=== PATIENT | female | born 1965 | race Caucasian/White ===

== ENCOUNTER 2018-01-19 11:48 | Emergency (ER) | payer BC ==
[~2018-01-19] VITALS: Ht 165.1 cm; Wt 80.0 kg
[2018-01-19 12:19] VITALS: BP 152/82; PULSE 77; RESP 17; TEMP 98.7; O2SAT 100
[2018-01-19] MEDS ORDERED: MORPHINE SULFATE 4 MG/ML INJ IV PUSH ONE ×2 (15:15→17:30)
[2018-01-19] MEDS ORDERED: SODIUM CHLOR 0.9% 1000 ML INJ 1,000 ML IV ONE (15:15)
[2018-01-19] MEDS ORDERED: PROMETHAZINE INJ 25 MG/ML VIAL IM ONE (15:15)
[2018-01-19 15:53] LABS: AUTOMATED NEUTROPHIL # 2.1 TH/MM3 (1.8-7.7); BASOPHIL % 1.2 % (0.0-2.0); EOSINOPHIL # 0.1 TH/MM3 (0-0.4); EOSINOPHIL % 1.6 % (0.0-4.0); HEMATOCRIT 34.5 % (35.0-46.0); HEMOGLOBIN 11.1 GM/DL (11.6-15.3); LYMPH % 28.1 % (9.0-44.0); LYMPHOCYTE # 0.9 TH/MM3 (1.0-4.8); MEAN CELL VOLUME 83.5 FL (80.0-100.0); MEAN CORPUSCULAR HEMOGLOBIN 26.9 PG (27.0-34.0); MEAN CORPUSCULAR HGB CONC 32.1 % (32.0-36.0); MEAN PLATELET VOLUME 8.1 FL (7.0-11.0); MONO % 4.1 % (0.0-8.0); MONOCYTE # 0.1 TH/MM3 (0-0.9); PLATELET COUNT 191 TH/MM3 (150-450); RED BLOOD COUNT 4.13 MIL/MM3 (4.00-5.30); RED CELL DISTRIBUTION WIDTH 13.7 % (11.6-17.2); WHITE BLOOD COUNT 3.2 TH/MM3 (4.0-11.0)
[2018-01-19 15:59] LABS: PROTHROMBIN TIME - PATIENT 10.2 SEC (9.8-11.6)
[2018-01-19 16:00] LABS: BILIRUBIN, URINE NEG (NEG); BLOOD, URINE SMALL (NEG); GLUCOSE,URINE NEG (NEG); KETONE, URINE NEG (NEG); NITRITE,URINE NEG (NEG); PH, URINE 6.5 (5.0-8.5); SQUAMOUS EPITHELIAL CELL URINE 1 /hpf (0-5); URINE COLOR LIGHT-YELLOW (YELLW/STRAW); URINE LEUKOCYTE ESTERASE NEG (NEG)
[2018-01-19 16:09] LABS: ALBUMIN 3.4 GM/DL (3.4-5.0); AST (GOT) 22 U/L (15-37); BICARBONATE 26.1 MEQ/L (21.0-32.0); BLOOD UREA NITROGEN 7 MG/DL (7-18); CALCIUM 8.9 MG/DL (8.5-10.1); CHLORIDE 110 MEQ/L (98-107); CREATININE 0.65 MG/DL (0.50-1.00); GLOMERULAR FILTRATION RATE 96 ML/MIN (>89); GLUCOSE,RANDOM 80 MG/DL (74-106); SODIUM (NA) 143 MEQ/L (136-145)
[2018-01-19 16:12] LABS: ALKALINE PHOSPHATASE 78 U/L (45-117); ALT (GPT) 25 U/L (10-53); TOTAL BILIRUBIN ADULT 0.2 MG/DL (0.2-1.0)
--- NOTE | 2018-01-19 16:43 | PD ---
HPI Chief Complaint: Abdominal Pain Time Seen by Provider: 14:56 Travel History International Travel<30 days: No Contact w/Intl Traveler<30days: No Traveled to known affect area: No History of Present Illness HPI 52-year-old female that presents to the ED for evaluation of abdominal pain. Patient states having left upper quadrant abdominal pain for the past week. Per patient she is now from this area. Per patient is from [facility]. Per patient she has a chronic history of Crohn's disease with multiple surgeries to her abdomen as well as a gastric stimulator. Per patient a gastric similar is off because it does not seem to be working for her and at this time did not want to take it out because of the patient's chronic comorbidities. She also has a history gastroparesis. Per patient she has been traveling with her significant other who is currently working here in [facility] and they noted that her pain has increased and worse today. Patient does have multiple allergies to different medications including Zofran, Percocet, Demerol, tramadol, ketorolac, iodine, and Reglan. She states that she follows with the [facility] in [place] for most of her care she has not been able to call them since being out of town. She is concerned that she may have an obstruction as the pain is only on the right side. She states that her bowel movements have been normal. She states feeling some nausea and some vomiting but nothing recently. She has been able to keep stuff down. She has been taking Motrin with minimal relief of the pain. PFSH Past Medical History ?: Unknown Social History Alcohol Use: Yes Tobacco Use: No Substance Use: No Allergies-Medications (Allergen,Severity, Reaction): Coded Allergies: acetaminophen (Verified Allergy, Severe, 01/19/18) iodine (Verified Allergy, Severe, Hives, 01/19/18) ketorolac (Verified Allergy, Severe, 01/19/18) meperidine (Verified Allergy, Severe, 01/19/18) metoclopramide (Verified Allergy, Severe, 01/19/18) ondansetron (Verified Allergy, Severe, 01/19/18) oxycodone (Verified Allergy, Severe, 01/19/18) Reported Meds & Prescriptions Reported Meds & Active Scripts Active Phenergan (Promethazine HCl) 25 Mg Tablet 25 Mg PO Q6H PRN Hydrocodone-Acetamin 5-325 mg (Hydrocodone/Acetaminophen) 5 Mg-325 Mg Tablet 1 Tab PO Q6HR PRN Review of Systems Except as stated in HPI: all other systems reviewed are Neg Physical Exam Narrative GENERAL: SKIN: Warm and dry. HEAD: Atraumatic. Normocephalic. EYES: Pupils equal and round. No scleral icterus. No injection or drainage. ENT: No nasal bleeding or discharge. Mucous membranes pink and moist. Tongue is midline. No uvula deviation. NECK: Trachea midline. No JVD. CARDIOVASCULAR: Regular rate and rhythm. No murmurs, S3, S4. RESPIRATORY: No accessory muscle use. Clear to auscultation. Breath sounds equal bilaterally. GASTROINTESTINAL: Abdomen soft, tender to palpation in the right upper quadrant , nondistended. Hepatic and splenic margins not palpable. MUSCULOSKELETAL: Extremities without clubbing, cyanosis, or edema. No obvious deformities. Full range of motion of the upper and lower extremities bilaterally. 2+ pulses bilaterally. NEUROLOGICAL: Awake and alert. No obvious cranial nerve deficits. Motor grossly within normal limits. Five out of 5 muscle strength in the arms and legs. Normal speech. PSYCHIATRIC: Appropriate mood and affect; insight and judgment normal. Data Data Last Documented VS Vital Signs Date Time Temp Pulse Resp B/P (MAP) Pulse Ox O2 Delivery O2 Flow Rate FiO2 01/19/18 12:19 98.7 77 17 152/82 (105) 100 Orders Orders Complete Blood Count With Diff (01/19/18 14:59) Comprehensive Metabolic Panel (01/19/18 14:59) Lipase (01/19/18 14:59) Lactic Acid (01/19/18 14:59) Prothrombin Time / Inr (Pt) (01/19/18 14:59) Act Partial Throm Time (Ptt) (01/19/18 14:59) Urinalysis - C+S If Indicated (01/19/18 14:59) Iv Access Insert/Monitor (01/19/18 14:59) Ecg Monitoring (01/19/18 14:59) Ct Abd/Pel W/O Iv Contrast (01/19/18 ) Promethazine Inj (Phenergan Inj) (01/19/18 15:15) Sodium Chlor 0.9% 1000 Ml Inj (Ns 1000 M (01/19/18 15:15) Morphine Inj (Morphine Inj) (01/19/18 15:15) Morphine Inj (Morphine Inj) (01/19/18 17:30) Ed Discharge Order (01/19/18 17:46) Labs Laboratory Tests Test 01/19/18 15:30 White Blood Count 3.2 TH/MM3 Red Blood Count 4.13 MIL/MM3 Hemoglobin 11.1 GM/DL Hematocrit 34.5 % Mean Corpuscular Volume 83.5 FL Mean Corpuscular Hemoglobin 26.9 PG Mean Corpuscular Hemoglobin Concent 32.1 % Red Cell Distribution Width 13.7 % Platelet Count 191 TH/MM3 Mean Platelet Volume 8.1 FL Neutrophils (%) (Auto) 65.0 % Lymphocytes (%) (Auto) 28.1 % Monocytes (%) (Auto) 4.1 % Eosinophils (%) (Auto) 1.6 % Basophils (%) (Auto) 1.2 % Neutrophils # (Auto) 2.1 TH/MM3 Lymphocytes # (Auto) 0.9 TH/MM3 Monocytes # (Auto) 0.1 TH/MM3 Eosinophils # (Auto) 0.1 TH/MM3 Basophils # (Auto) 0.0 TH/MM3 CBC Comment DIFF FINAL Differential Comment Prothrombin Time 10.2 SEC Prothromb Time International Ratio 1.0 RATIO Activated Partial Thromboplast Time 22.6 SEC Urine Color LIGHT-YELLOW Urine Turbidity CLEAR Urine pH 6.5 Urine Specific [place] 1.006 Urine Protein NEG mg/dL Urine Glucose (UA) NEG mg/dL Urine Ketones NEG mg/dL Urine Occult Blood SMALL Urine Nitrite NEG Urine Bilirubin NEG Urine Urobilinogen LESS THAN 2.0 MG/DL Urine Leukocyte Esterase NEG Urine RBC 2 /hpf Urine WBC LESS THAN 1 /hpf Urine Squamous Epithelial Cells 1 /hpf Microscopic Urinalysis Comment CULT NOT INDICATED Blood Urea Nitrogen 7 MG/DL Creatinine 0.65 MG/DL Random Glucose 80 MG/DL Total Protein 7.0 GM/DL Albumin 3.4 GM/DL Calcium Level 8.9 MG/DL Alkaline Phosphatase 78 U/L Aspartate Amino Transf (AST/SGOT) 22 U/L Alanine Aminotransferase (ALT/SGPT) 25 U/L Total Bilirubin 0.2 MG/DL Sodium Level 143 MEQ/L Potassium Level 4.0 MEQ/L Chloride Level 110 MEQ/L Carbon Dioxide Level 26.1 MEQ/L Anion Gap 7 MEQ/L Estimat Glomerular Filtration Rate 96 ML/MIN Lactic Acid Level 0.5 mmol/L Lipase 57 U/L MDM Medical Decision Making Medical Screen Exam Complete: Yes Emergency Medical Condition: Yes Medical Record Reviewed: Yes Interpretation(s) CBC & BMP Diagram 01/19/18 15:30 Total Protein 7.0, Albumin 3.4, Calcium Level 8.9, Alkaline Phosphatase 78, Aspartate Amino Transf (AST/SGOT) 22, Alanine Aminotransferase (ALT/SGPT) 25, Total Bilirubin 0.2 UA shows some blood Differential Diagnosis Abdominal pain versus obstruction versus chronic abdominal pain versus Crohn's flareup versus acute on chronic pain versus gastritis Narrative Course 52-year-old female that presents to the ED for evaluation of left upper abdominal pain. Labs and imaging order. Patient was given IV pain medications. Labs and imaging showed no sign of acute disease. More specifically no sign of infection, obstruction or etiology for the patient's abdominal pain. No sign of inflammation of the bowels. Case was discussed with my attending Dr. Brito who evaluated the patient and reviewed all the records with the patient and agrees with discharge. Patient will be discharged with prescription for Phenergan for nausea as well as Lortab for pain. Patient was told that she is to follow closely with her GI doctor. See ED worsening symptoms. Follow-up with PCP. Diagnosis Primary Impression: Abdominal pain Qualified Codes: R10.12 - Left upper quadrant pain Patient Instructions: General Instructions, Narcotic given in the ED Additional Instructions: Take medications as prescribed. Follow-up with PCP. See ED for any worsening symptoms. Do not drink or drive while taking pain medication. Apply ice or heat as needed for pain Med/Other Pt SpecificInfo: Prescription(s) given Scripts Promethazine (Phenergan) 25 Mg Tablet 25 MG PO Q6H Y for NAUSEA OR VOMITING, #15 TAB 0 Refills Prov: Kenn Brito MD 01/19/18 Hydrocodone/Acetaminophen (Hydrocodone-Acetamin 5-325 mg) 5 Mg-325 Mg Tablet 1 TAB PO Q6HR Y for PAIN SCALE 1 TO 10, #12 Prov: Kenn Brito MD 01/19/18 Disposition: 01 DISCHARGE HOME Condition: Stable Pankaj Casas January 19, 2018 16:43
--- NOTE | 2018-01-19 17:15 | RADRPT ---
EXAM DATE: 01/19/2018 5:07 PM EDT AGE/SEX: 52 years / Female INDICATIONS: Patient complains of abdominal pain with nausea. CLINICAL DATA: This is the patient's initial encounter. Patient reports that signs and symptoms have been present for 2 days and indicates a pain score of 8/10. MEDICAL/SURGICAL HISTORY: Gastroparesis. Crohn's . Port, gastric stimulator RADIATION DOSE: 11.38 CTDI (mGy) COMPARISON: No prior [facility] exams available for comparison. TECHNIQUE: Multiple contiguous axial images were obtained through the abdomen. Images were obtained using multiple row detector helical technique. Using dose reduction techniques, radiation dose was ke pt as low as reasonably achievable to obtain optimal diagnostic quality images. FINDINGS: Lower Lungs: The visualized lower lungs are clear. Liver: The liver has a homogeneous density without space-occupying lesion. There is no dilation of th e biliary tree. Surgical clips in the gallbladder fossa characteristic of prior cholecystectomy. Spleen: Homogeneous density without enlargement. Pancreas: Unremarkable without mass or calcification. Kidneys: Normal in size and shape. No evidence of mass or hydronephrosis. Adrenal Glands: Unremarkable. Aorta: The aorta and proximal iliac vessels are grossly unremarkable without aneurysmal dilation. Bowel/Mesentery: The bowel loops are grossly unremarkable. The cecum and sigmoid colon have a normal configuration. Patient appears to have a gastric pacer with the control unit in the subcutaneous tis sues of the left lower abdomen Abdominal Wall: Intact. Retroperitoneum: No evidence of adenopathy in the retrocrural, para-aortic, or deep pelvic regions. Bladder: Contours are smooth. Reproductive Organs: No abnormal masses or calcifications seen. Inguinal: The inguinal region is unremarkable without evidence of adenopathy. Bony Structures: Unremarkable. CONCLUSION: 1. Postsurgical changes with findings of prior cholecystectomy and gastric pacer. 2. Otherwise negative. No acute intraperitoneal or pelvic process to explain current clinical sympto ms. Electronically signed by: Phong Armas MD 01/19/2018 5:13 PM EDT
--- NOTE | 2018-01-19 17:43 | PD ---
Data Data Last Documented VS Vital Signs Date Time Temp Pulse Resp B/P (MAP) Pulse Ox O2 Delivery O2 Flow Rate FiO2 01/19/18 12:19 98.7 77 17 152/82 (105) 100 Orders Orders Complete Blood Count With Diff (01/19/18 14:59) Comprehensive Metabolic Panel (01/19/18 14:59) Lipase (01/19/18 14:59) Lactic Acid (01/19/18 14:59) Prothrombin Time / Inr (Pt) (01/19/18 14:59) Act Partial Throm Time (Ptt) (01/19/18 14:59) Urinalysis - C+S If Indicated (01/19/18 14:59) Iv Access Insert/Monitor (01/19/18 14:59) Ecg Monitoring (01/19/18 14:59) Ct Abd/Pel W/O Iv Contrast (01/19/18 ) Promethazine Inj (Phenergan Inj) (01/19/18 15:15) Sodium Chlor 0.9% 1000 Ml Inj (Ns 1000 M (01/19/18 15:15) Morphine Inj (Morphine Inj) (01/19/18 15:15) Morphine Inj (Morphine Inj) (01/19/18 17:30) Labs Laboratory Tests Test 01/19/18 15:30 White Blood Count 3.2 TH/MM3 Red Blood Count 4.13 MIL/MM3 Hemoglobin 11.1 GM/DL Hematocrit 34.5 % Mean Corpuscular Volume 83.5 FL Mean Corpuscular Hemoglobin 26.9 PG Mean Corpuscular Hemoglobin Concent 32.1 % Red Cell Distribution Width 13.7 % Platelet Count 191 TH/MM3 Mean Platelet Volume 8.1 FL Neutrophils (%) (Auto) 65.0 % Lymphocytes (%) (Auto) 28.1 % Monocytes (%) (Auto) 4.1 % Eosinophils (%) (Auto) 1.6 % Basophils (%) (Auto) 1.2 % Neutrophils # (Auto) 2.1 TH/MM3 Lymphocytes # (Auto) 0.9 TH/MM3 Monocytes # (Auto) 0.1 TH/MM3 Eosinophils # (Auto) 0.1 TH/MM3 Basophils # (Auto) 0.0 TH/MM3 CBC Comment DIFF FINAL Differential Comment Prothrombin Time 10.2 SEC Prothromb Time International Ratio 1.0 RATIO Activated Partial Thromboplast Time 22.6 SEC Urine Color LIGHT-YELLOW Urine Turbidity CLEAR Urine pH 6.5 Urine Specific [place] 1.006 Urine Protein NEG mg/dL Urine Glucose (UA) NEG mg/dL Urine Ketones NEG mg/dL Urine Occult Blood SMALL Urine Nitrite NEG Urine Bilirubin NEG Urine Urobilinogen LESS THAN 2.0 MG/DL Urine Leukocyte Esterase NEG Urine RBC 2 /hpf Urine WBC LESS THAN 1 /hpf Urine Squamous Epithelial Cells 1 /hpf Microscopic Urinalysis Comment CULT NOT INDICATED Blood Urea Nitrogen 7 MG/DL Creatinine 0.65 MG/DL Random Glucose 80 MG/DL Total Protein 7.0 GM/DL Albumin 3.4 GM/DL Calcium Level 8.9 MG/DL Alkaline Phosphatase 78 U/L Aspartate Amino Transf (AST/SGOT) 22 U/L Alanine Aminotransferase (ALT/SGPT) 25 U/L Total Bilirubin 0.2 MG/DL Sodium Level 143 MEQ/L Potassium Level 4.0 MEQ/L Chloride Level 110 MEQ/L Carbon Dioxide Level 26.1 MEQ/L Anion Gap 7 MEQ/L Estimat Glomerular Filtration Rate 96 ML/MIN Lactic Acid Level 0.5 mmol/L Lipase 57 U/L MDM Supervised Visit with [facility]: Yes Narrative Course I, Dr. Brito, have reviewed the advance practice practitioner's documentation and am in agreement, met with the patient face to face, made the diagnosis, and the medical decision making was done by me. *My assessment and Findings: Patient had extensive workup here. No evidence of emergent condition. She does have chronic abdominal situation but I do not see any. She does feel improved. Kenn Brito MD January 19, 2018 17:43
[2018-01-19] MEDS ORDERED: PROM25TA10 PO (17:46)
[2018-01-19] MEDS ORDERED: HYDR-3516 PO (17:46)
[2018-01-19] MEDS ORDERED: SODIUM CHLORIDE 0.9% FLUSH 10 ML FLUSH IVF PRN (18:00)
== END 2018-01-19 18:38 | disposition home or self-care (01) ==
LOC: NEPC 11:48
DX: R10.12 Left upper quadrant pain (principal)
CPT/HCPCS: 74176; 80053; 81001; 83605; 83690; 85025; 85610; 85730; 96361; 96372; 96374; 96376; 99284; J2270; J2550; J7030